=== PATIENT | female | born 1950 | race Caucasian/White ===

== ENCOUNTER 2018-10-06 02:00 | Inpatient (IN) | payer MEDICARE ==
[~2018-10-06] VITALS: Ht 157.5 cm; Wt 55.6 kg
--- NOTE | 2018-10-06 02:05 | NUR ---
BIB [facility] FROM [place] W/ CO HYPOTENSION/CHEST PRESSURE. PT TO [facility] INITALLY WITH CO RAPID HR. FOUND TO BE FEBRILE AND HYPOTENSIVE. PRELIMINARY DX OF PNU AND POSSIBLE UTI. 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 ARRIVES ON LEVOPHED, PWD/AWAKE/ALERT. NSR ON MONITOR. LEVOPHED STOPPED UPON ARRIVAL PER ERP ORDER. SO AT BEDSIDE.
[2018-10-06] MEDS ORDERED: OMNIPAQUE 350 MG/ML, 100ML BOTTLE ONE (02:15)
--- NOTE | 2018-10-06 02:21 | NUR ---
PT HYPOTENSIVE, SBP 80'S. ERP AWARE.
--- NOTE | 2018-10-06 02:29 | NUR ---
LEVOPHED INITIATED THROUGH PERIPHERAL IV PER ERP. PT SITTING UP IN [place] SPEAKING WITH RN AND SO WO DIFFICULTY. PT DENIES DIZZINESS/WEAKNESS/NAUSEA W/ HYPOTENSION. CENTRAL LINE CART SET UP. CONSENT SIGNED FOR CENTRAL LINE PLACEMENT.
[2018-10-06] MEDS ORDERED: SODIUM CHLORIDE FLUSH 10ML SYR IVF ONE (02:30)
[2018-10-06] MEDS ORDERED: NOREPINEPHRINE 4 MG in SODIUM CHLORIDE 0.9% 246 ML IV PRN ×3 (02:30→04:37)
[2018-10-06] MEDS ORDERED: OLAN5TAB9 PO (02:41)
[2018-10-06] MEDS ORDERED: ATOR-2 PO (02:41)
[2018-10-06] MEDS ORDERED: MULT-752 PO (02:41)
[2018-10-06] MEDS ORDERED: GABA300C10 PO (02:41)
[2018-10-06] MEDS ORDERED: MAGN400T26 PO (02:41)
[2018-10-06] MEDS ORDERED: DIGO125T PO (02:41)
[2018-10-06] MEDS ORDERED: METO200T47 PO (02:41)
[2018-10-06 02:50] LABS: BASOPHILS # (AUTO) 0.02 x10^3/uL (0-0.1); BASOPHILS % (AUTO) 0 % (0-1); EOSINOPHILS # (AUTO) 0.18 x10^3/uL (0-0.4); EOSINOPHILS % (AUTO) 1 % (1-7); LYMPHOCYTES % (AUTO) 14 % (22-44); MD NO; MEAN CORPUSCULAR HEMOGLOBIN 33.1 pg (27.0-34.8); MEAN CORPUSCULAR HGB CONC 33.5 g/dL (32.4-35.8); MEAN CORPUSCULAR VOLUME 98.9 fL (80-100); MEAN PLATELET VOLUME 10.3 fL (7.4-10.4); MONOCYTES % (AUTO) 7 % (2-9); NEUTROPHILS # (AUTO) 10.29 x10^3/uL (1.8-6.8); NEUTROPHILS % (AUTO) 77 % (42-75); PLATELET COUNT 225 x10^3/uL (130-400); RED BLOOD COUNT 3.18 x10^6/uL (3.82-5.3)
--- NOTE | 2018-10-06 02:56 | NUR ---
LEVO TITRATED TO DESIRED EFFECT. PT TO CT AT THIS TIME W/ RN. ON ZOLL THROUGHOUT. REPORT TO COLBY CHANG
[2018-10-06 03:01] LABS: ALANINE AMINOTRANSFERASE 63 U/L (12-78); ANION GAP 8 mmol/L (5-15); CALCIUM 7.7 mg/dL (8.5-10.1); CHLORIDE 110 mmol/L (98-107); CREATININE 0.62 mg/dL (0.55-1.02)
[2018-10-06 03:06] LABS: ALKALINE PHOSPHATASE 338 U/L (45-117); BILIRUBIN,TOTAL 0.5 mg/dL (0.2-1.0); TOTAL PROTEIN 5.7 g/dL (6.4-8.2); TROPONIN I 0.044 ng/mL (0.000-0.045)
--- NOTE | 2018-10-06 03:14 | NUR ---
PT BACK FROM CT. REPORT RECEIVED AND CARE ASSUMED. PT NSR ON MONITOR. BP 132/69 ON 2MCG/MIN OF LEVOPHED. LEVO DECREASED TO 1MCG/MIN. PT A&OX4. AWAITING ERP FOR CENTRAL LINE PLACEMENT.
--- NOTE | 2018-10-06 03:41 | NUR ---
PT ASSISTED WITH BEDPAN. UA COLLECTED AND SENT PER ERP REQUEST. ERP IN TO DISCUSS POC. CENTRAL LINE TO BE PLACED. REPORT TO JENNY BOWMAN.
[2018-10-06] MEDS ORDERED: LIDOCAINE-MPF 1%, 5ML ONE (03:49)
[2018-10-06 04:08] LABS: CULTURE INDICATED? YES; MICROSCOPIC INDICATED
[2018-10-06] MEDS ORDERED: MORPHINE SULFATE 4 MG/ML, 1ML ONE ×2 (04:28→05:02)
[2018-10-06] MEDS ORDERED: ONDANSETRON 2MG/ML, 2ML ONE (04:28)
[2018-10-06] MEDS ORDERED: CEFTRIAXONE PMX 1GM/50ML 50 ML IVPB ONE (04:30)
[2018-10-06] MEDS ORDERED: AZITHROMYCIN 500 MG in SODIUM CHLORIDE 0.9% 250 ML IV ONE (04:30)
[2018-10-06] MEDS: MORPHINE SULFATE 4 MG/ML, 1ML IVPush PRN ×2 (04:41→05:08)
[2018-10-06] MEDS ORDERED: CEFTRIAXONE PMX 1GM/50ML 50 ML ONE (04:46)
[2018-10-06] MEDS ORDERED: LEVOFLOXACIN/PMX 750MG/150ML 150 ML IV SCH (05:00)
[2018-10-06] MEDS ORDERED: ONDANSETRON 2MG/ML, 2ML IVPB PRN (05:00)
[2018-10-06] MEDS ORDERED: SODIUM CHLORIDE 0.9% 1,000ML IVBOLUS ONE (05:00)
[2018-10-06] MEDS ORDERED: PHARMACY MAY ADJ FOR RENAL FX MC PRN (05:00)
[2018-10-06] MEDS ORDERED: ALBUTEROL/IPRATROPIUM 2.5MG/0.5MG, 3 ML NPPB PRN (05:00)
[2018-10-06] MEDS ORDERED: SODIUM CHLORIDE 0.9%, 500ML IVBOLUS PRN ×2 (05:00)
[2018-10-06 05:18] LABS: FREE T4 (FREE THYROXINE) 0.92 ng/dL (0.76-1.46); THYROID STIMULATING HORMONE 6.26 mIU/L (0.358-3.740)
[2018-10-06] MEDS ORDERED: LEVOFLOXACIN/PMX 750MG/150ML 150 ML ONE (05:34)
[2018-10-06 05:57] VITALS: BP 135/72
[2018-10-06] MEDS: ASPIRIN 81 MG TABLET EC PO SCH (06:00)
[2018-10-06] MEDS: LEVOTHYROXINE 137 MCG TABLET PO SCH (06:18)
[2018-10-06] MEDS: DIGOXIN 0.125 MG TABLET PO SCH (09:00)
[2018-10-06] MEDS: OLANZAPINE 5 MG TABLET PO SCH (09:01)
[2018-10-06 10:48] LABS: TROPONIN I 0.085 ng/mL (0.000-0.045)
[2018-10-06] MEDS: OXYcodone IR 5MG TABLET PO PRN ×2 (13:46→20:14)
[2018-10-06] MEDS: PIPERACILLIN/TAZO/PMX 3.375GM 50 ML IV SCH ×2 (14:14→20:14)
[2018-10-06 14:44] VITALS: BP 118/67
[2018-10-06 15:04] LABS: TROPONIN I 0.073 ng/mL (0.000-0.045)
[2018-10-06] MEDS: LINEZOLID PMX 600MG/300ML 300 ML IV SCH (15:48)
[2018-10-06 18:54] VITALS: BP 89/58
[2018-10-06 19:09] LABS: TROPONIN I 0.065 ng/mL (0.000-0.045)
[2018-10-06] MEDS: GABAPENTIN 100 MG CAPSULE PO SCH (20:14)
[2018-10-06 21:15] VITALS: BP 80/47
[2018-10-06] MEDS ORDERED: SODIUM CHLORIDE 0.9%, 500ML IVBOLUS ONE ×2 (21:45→23:00)
[2018-10-06 22:54] VITALS: BP 71/42
[2018-10-06] MEDS ORDERED: ALBUMIN HUMAN 5% 500 ML IV ONE (23:00)
[2018-10-06 23:20] VITALS: BP 84/49
[2018-10-07] VITALS (8 sets, daily range): BP systolic 89–113; BP diastolic 49–69
[2018-10-07] MEDS: LINEZOLID PMX 600MG/300ML 300 ML IV SCH ×2 (01:13→13:19)
[2018-10-07 01:33] LABS: BASOPHILS # (AUTO) 0.02 x10^3/uL (0-0.1); BASOPHILS % (AUTO) 0 % (0-1); EOSINOPHILS # (AUTO) 0.11 x10^3/uL (0-0.4); EOSINOPHILS % (AUTO) 1 % (1-7); LYMPHOCYTES # (AUTO) 1.27 x10^3/uL (1-3.4); LYMPHOCYTES % (AUTO) 12 % (22-44); MD NO; MEAN CORPUSCULAR HEMOGLOBIN 32.1 pg (27.0-34.8); MEAN CORPUSCULAR VOLUME 97.2 fL (80-100); MEAN PLATELET VOLUME 9.9 fL (7.4-10.4); MONOCYTES # (AUTO) 0.59 x10^3/uL (0.2-0.8); MONOCYTES % (AUTO) 6 % (2-9); NEUTROPHILS # (AUTO) 8.76 x10^3/uL (1.8-6.8); NEUTROPHILS % (AUTO) 82 % (42-75); PLATELET COUNT 210 x10^3/uL (130-400); RED BLOOD COUNT 2.97 x10^6/uL (3.82-5.3); RED CELL DISTRIBUTION WIDTH 17.5 % (9.6-15.2)
[2018-10-07 01:37] LABS: ALANINE AMINOTRANSFERASE 46 U/L (12-78); ANION GAP 9 mmol/L (5-15); CALCIUM 7.9 mg/dL (8.5-10.1); CHLORIDE 106 mmol/L (98-107); CREATININE 0.86 mg/dL (0.55-1.02)
[2018-10-07 01:39] LABS: ALKALINE PHOSPHATASE 258 U/L (45-117); BILIRUBIN,TOTAL 0.6 mg/dL (0.2-1.0); TOTAL PROTEIN 5.3 g/dL (6.4-8.2)
[2018-10-07] MEDS: OXYcodone IR 5MG TABLET PO PRN ×4 (02:08→21:41)
[2018-10-07 02:36] LABS: TROPONIN I 0.048 ng/mL (0.000-0.045)
[2018-10-07] MEDS ORDERED: MAGNESIUM SULFATE PMX 2GM/50ML 50 ML IV ONE ×2 (03:00→13:00)
[2018-10-07] MEDS: PIPERACILLIN/TAZO/PMX 3.375GM 50 ML IV SCH ×4 (03:41→21:41)
[2018-10-07] MEDS: LEVOTHYROXINE 137 MCG TABLET PO SCH (05:30)
[2018-10-07] MEDS: ASPIRIN 81 MG TABLET EC PO SCH (05:30)
[2018-10-07] MEDS: OLANZAPINE 5 MG TABLET PO SCH (08:56)
[2018-10-07] MEDS: DIGOXIN 0.125 MG TABLET PO SCH (08:57)
[2018-10-07] MEDS: HYDROCORTISONE 100 MG INJ. IVPush SCH ×2 (12:43→20:01)
[2018-10-07] MEDS: GABAPENTIN 100 MG CAPSULE PO SCH (21:41)
[2018-10-07] MEDS ORDERED: DIPHENHYDRAMINE 25 MG CAPSULE ONE (23:54)
[2018-10-08 00:02] VITALS: BP 113/64
[2018-10-08] MEDS: HYDROCORTISONE 100 MG INJ. IVPush SCH ×4 (01:00→17:55)
[2018-10-08] MEDS: LINEZOLID PMX 600MG/300ML 300 ML IV SCH ×2 (01:01→13:48)
[2018-10-08] MEDS: PIPERACILLIN/TAZO/PMX 3.375GM 50 ML IV SCH ×4 (03:36→20:55)
[2018-10-08] MEDS: OXYcodone IR 5MG TABLET PO PRN ×4 (03:36→22:36)
[2018-10-08 04:34] LABS: BASOPHILS # (AUTO) 0.06 x10^3/uL (0-0.1); BASOPHILS % (AUTO) 1 % (0-1); EOSINOPHILS % (AUTO) 0 % (1-7); LYMPHOCYTES # (AUTO) 0.74 x10^3/uL (1-3.4); LYMPHOCYTES % (AUTO) 6 % (22-44); MD NO; MEAN CORPUSCULAR HEMOGLOBIN 31.7 pg (27.0-34.8); MEAN CORPUSCULAR HGB CONC 32.3 g/dL (32.4-35.8); MEAN CORPUSCULAR VOLUME 98.1 fL (80-100); MEAN PLATELET VOLUME 9.5 fL (7.4-10.4); MONOCYTES # (AUTO) 0.15 x10^3/uL (0.2-0.8); MONOCYTES % (AUTO) 1 % (2-9); NEUTROPHILS # (AUTO) 10.87 x10^3/uL (1.8-6.8); NEUTROPHILS % (AUTO) 92 % (42-75); PLATELET COUNT 210 x10^3/uL (130-400); RED BLOOD COUNT 3.11 x10^6/uL (3.82-5.3); RED CELL DISTRIBUTION WIDTH 17.7 % (9.6-15.2)
[2018-10-08 04:44] LABS: ANION GAP 9 mmol/L (5-15); CALCIUM 8.5 mg/dL (8.5-10.1); CHLORIDE 106 mmol/L (98-107); CREATININE 0.75 mg/dL (0.55-1.02)
[2018-10-08] MEDS: LEVOTHYROXINE 137 MCG TABLET PO SCH (06:14)
[2018-10-08] MEDS: ASPIRIN 81 MG TABLET EC PO SCH (06:14)
[2018-10-08 08:00] VITALS: BP 93/56
[2018-10-08] MEDS: OLANZAPINE 5 MG TABLET PO SCH (08:59)
[2018-10-08] MEDS: DIGOXIN 0.125 MG TABLET PO SCH (08:59)
[2018-10-08 14:00] VITALS: BP 101/56
[2018-10-08] MEDS: GABAPENTIN 100 MG CAPSULE PO SCH (20:55)
[2018-10-08 22:30] VITALS: BP 136/70
[2018-10-08] MEDS ORDERED: TEMAZEPAM 15 MG CAPSULE ONE (23:41)
[2018-10-08] MEDS ORDERED: DIPHENHYDRAMINE 25 MG CAPSULE PO ONE ×2 (23:45)
[2018-10-08] MEDS: TEMAZEPAM 15 MG CAPSULE PO PRN (23:56)
[2018-10-09] MEDS: TEMAZEPAM 15 MG CAPSULE PO PRN ×2 (01:23→21:13)
[2018-10-09 01:24] VITALS: BP 138/81
[2018-10-09] MEDS: HYDROCORTISONE 100 MG INJ. IVPush SCH ×5 (03:43→23:29)
[2018-10-09] MEDS: PIPERACILLIN/TAZO/PMX 3.375GM 50 ML IV SCH ×4 (03:43→21:14)
[2018-10-09 05:19] LABS: HCT (SEDRATE) 29.9 % (34.6-47.8)
[2018-10-09 05:22] LABS: MEAN CORPUSCULAR HEMOGLOBIN 31.6 pg (27.0-34.8); MEAN CORPUSCULAR VOLUME 98.8 fL (80-100); MEAN PLATELET VOLUME 10.1 fL (7.4-10.4); PLATELET COUNT 274 x10^3/uL (130-400); RED BLOOD COUNT 3.11 x10^6/uL (3.82-5.3); RED CELL DISTRIBUTION WIDTH 17.9 % (9.6-15.2)
[2018-10-09 05:24] LABS: ANION GAP 10 mmol/L (5-15); CALCIUM 8.5 mg/dL (8.5-10.1); CHLORIDE 105 mmol/L (98-107)
[2018-10-09 05:38] LABS: CREATININE 0.96 mg/dL (0.55-1.02)
[2018-10-09 05:45] LABS: BASOPHILS # (AUTO) 0.02 x10^3/uL (0-0.1); BASOPHILS % (AUTO) 0 % (0-1); EOSINOPHILS % (AUTO) 0 % (1-7); LYMPHOCYTES # (AUTO) 0.99 x10^3/uL (1-3.4); LYMPHOCYTES % (AUTO) 5 % (22-44); MD SCAN; MONOCYTES # (AUTO) 0.28 x10^3/uL (0.2-0.8); MONOCYTES % (AUTO) 1 % (2-9); NEUTROPHILS # (AUTO) 20.78 x10^3/uL (1.8-6.8); NEUTROPHILS % (AUTO) 94 % (42-75)
[2018-10-09 07:05] VITALS: BP_SYST 149; BP_SYST 151; BP_DIAS 75; BP_DIAS 76
[2018-10-09 11:14] VITALS: BP 149/66
[2018-10-09] MEDS: DIGOXIN 0.125 MG TABLET PO SCH (11:15)
[2018-10-09] MEDS: ASPIRIN 81 MG TABLET EC PO SCH (11:15)
[2018-10-09] MEDS: LEVOTHYROXINE 137 MCG TABLET PO SCH (11:15)
[2018-10-09] MEDS: OLANZAPINE 5 MG TABLET PO SCH (11:16)
[2018-10-09] MEDS: LINEZOLID 600 MG TABLET PO SCH ×2 (11:16→21:13)
[2018-10-09] MEDS: OXYcodone IR 5MG TABLET PO PRN ×3 (11:16→23:29)
[2018-10-09 14:00] VITALS: BP 148/74
[2018-10-09 20:38] VITALS: BP 155/74
[2018-10-09] MEDS: GABAPENTIN 100 MG CAPSULE PO SCH (21:13)
[2018-10-10] VITALS (7 sets, daily range): BP systolic 156–186; BP diastolic 77–83
[2018-10-10] MEDS ORDERED: hydrALAzine 20 MG/ML, 1ML IV ONE (03:00)
[2018-10-10] MEDS: PIPERACILLIN/TAZO/PMX 3.375GM 50 ML IV SCH ×3 (03:12→15:31)
[2018-10-10] MEDS: HYDROCORTISONE 100 MG INJ. IVPush SCH ×2 (05:37→11:30)
[2018-10-10] MEDS: ASPIRIN 81 MG TABLET EC PO SCH (05:37)
[2018-10-10] MEDS: LEVOTHYROXINE 137 MCG TABLET PO SCH (05:38)
[2018-10-10] MEDS: OXYcodone IR 5MG TABLET PO PRN ×4 (05:38→23:23)
[2018-10-10 06:07] LABS: ANION GAP 11 mmol/L (5-15); CALCIUM 8.4 mg/dL (8.5-10.1); CHLORIDE 104 mmol/L (98-107); CREATININE 0.93 mg/dL (0.55-1.02)
[2018-10-10 06:42] LABS: MEAN CORPUSCULAR HEMOGLOBIN 35.4 pg (27.0-34.8); MEAN CORPUSCULAR HGB CONC 34.2 g/dL (32.4-35.8); MEAN CORPUSCULAR VOLUME 103.5 fL (80-100); MEAN PLATELET VOLUME 10.1 fL (7.4-10.4); PLATELET COUNT 323 x10^3/uL (130-400); RED BLOOD COUNT 2.84 x10^6/uL (3.82-5.3); RED CELL DISTRIBUTION WIDTH 17.1 % (9.6-15.2)
[2018-10-10 07:05] LABS: BASOPHILS % (AUTO) 0 % (0-1); EOSINOPHILS # (AUTO) 0.21 x10^3/uL (0-0.4); EOSINOPHILS % (AUTO) 1 % (1-7); LYMPHOCYTES # (AUTO) 1.05 x10^3/uL (1-3.4); LYMPHOCYTES % (AUTO) 6 % (22-44); MD MORPH REVIEW ONLY; MONOCYTES # (AUTO) 0.11 x10^3/uL (0.2-0.8); MONOCYTES % (AUTO) 1 % (2-9); NEUTROPHILS # (AUTO) 17.18 x10^3/uL (1.8-6.8); NEUTROPHILS % (AUTO) 93 % (42-75)
[2018-10-10 07:06] LABS: <PLATELET ESTIMATE> ADEQUATE; <PLT MORPHOLOGY> NORMAL PLT MORPH; HYPERSEG PMNs 1+
[2018-10-10 07:07] LABS: <RBC MORPHOLOGY> NORMAL
[2018-10-10] MEDS: OLANZAPINE 5 MG TABLET PO SCH (08:16)
[2018-10-10] MEDS: LINEZOLID 600 MG TABLET PO SCH (08:16)
[2018-10-10] MEDS: DIGOXIN 0.125 MG TABLET PO SCH (08:17)
[2018-10-10] MEDS: AMOXICILLIN/CLAV 875-125MG TABLET PO SCH (17:25)
[2018-10-10] MEDS: GABAPENTIN 100 MG CAPSULE PO SCH (20:46)
[2018-10-11] MEDS: TEMAZEPAM 15 MG CAPSULE PO PRN (00:06)
[2018-10-11 01:01] VITALS: BP 156/73
[2018-10-11 04:55] LABS: ANION GAP 9 mmol/L (5-15); BASOPHILS # (AUTO) 0.01 x10^3/uL (0-0.1); BASOPHILS % (AUTO) 0 % (0-1); CALCIUM 8.4 mg/dL (8.5-10.1); CHLORIDE 101 mmol/L (98-107); CREATININE 0.88 mg/dL (0.55-1.02); EOSINOPHILS # (AUTO) 0.09 x10^3/uL (0-0.4); EOSINOPHILS % (AUTO) 1 % (1-7); LYMPHOCYTES # (AUTO) 2.25 x10^3/uL (1-3.4); LYMPHOCYTES % (AUTO) 19 % (22-44); MD NO; MEAN CORPUSCULAR HEMOGLOBIN 34.8 pg (27.0-34.8); MEAN CORPUSCULAR HGB CONC 34.2 g/dL (32.4-35.8); MEAN CORPUSCULAR VOLUME 101.8 fL (80-100); MEAN PLATELET VOLUME 9.5 fL (7.4-10.4); MONOCYTES # (AUTO) 0.43 x10^3/uL (0.2-0.8); MONOCYTES % (AUTO) 4 % (2-9); NEUTROPHILS # (AUTO) 9.43 x10^3/uL (1.8-6.8); NEUTROPHILS % (AUTO) 77 % (42-75); PLATELET COUNT 388 x10^3/uL (130-400); RED BLOOD COUNT 3.32 x10^6/uL (3.82-5.3); RED CELL DISTRIBUTION WIDTH 17.4 % (9.6-15.2)
[2018-10-11] MEDS: AMOXICILLIN/CLAV 875-125MG TABLET PO SCH ×2 (05:20→16:36)
[2018-10-11] MEDS: ASPIRIN 81 MG TABLET EC PO SCH (05:20)
[2018-10-11] MEDS: LEVOTHYROXINE 137 MCG TABLET PO SCH (05:20)
[2018-10-11] MEDS: OXYcodone IR 5MG TABLET PO PRN ×2 (05:20→12:04)
[2018-10-11 07:11] VITALS: BP 164/81
[2018-10-11] MEDS ORDERED: POTASSIUM CHLORIDE 20 MEQ TAB.ER.PRT PO ONE ×2 (08:30→12:30)
[2018-10-11] MEDS: HYDROCORTISONE 100 MG INJ. IVPush SCH ×2 (08:55→09:20)
[2018-10-11] MEDS: DIGOXIN 0.125 MG TABLET PO SCH (08:55)
[2018-10-11] MEDS: OLANZAPINE 5 MG TABLET PO SCH (09:20)
[2018-10-11] MEDS ORDERED: hydrALAzine 20 MG/ML, 1ML IV ONE (10:00)
[2018-10-11] MEDS ORDERED: BUTALBIT/ACETAMIN/CAFF/CODEINE CAPSULE PO ONE (10:00)
[2018-10-11 10:46] VITALS: BP 107/65
[2018-10-11] MEDS ORDERED: AMOX1TAB12 PO (11:56)
[2018-10-11] MEDS ORDERED: LEVO137T2 PO (11:56)
[2018-10-11] MEDS ORDERED: METH4TAB6 PO (11:56)
[2018-10-11] MEDS ORDERED: ASPI81TA45 PO (11:56)
[2018-10-11 12:03] VITALS: BP 107/64
[2018-10-13] MEDS ORDERED: HYDROCORTISONE 100 MG INJ. IVPush SCH (09:00)
== END 2018-10-11 19:04 | disposition home or self-care (01) | DRG 871 ==
LOC: ED 04:10 → EDIP 04:29 → CCU 05:48 → 5SO 14:43
PROVIDERS: ADMIT Internal Medicine; ATTEND Internal Medicine
PROC: 02HV33Z Insertion of Infusion Device into Superior Vena Cava, Percutaneous Approach (ICD-10-PCS; principal; 2018-10-06)
DX: A41.9 Sepsis, unspecified organism (principal); R65.21 Severe sepsis with septic shock; I50.21 Acute systolic (congestive) heart failure; J15.9 Unspecified bacterial pneumonia; I21.9 Acute myocardial infarction, unspecified; E27.40 Unspecified adrenocortical insufficiency; K50.90 Crohn's disease, unspecified, without complications; F11.20 Opioid dependence, uncomplicated; J44.0 Chronic obstructive pulmonary disease with (acute) lower respiratory infection; N39.0 Urinary tract infection, site not specified; F32.9 Major depressive disorder, single episode, unspecified; G25.81 Restless legs syndrome; E03.9 Hypothyroidism, unspecified; G89.29 Other chronic pain; F41.9 Anxiety disorder, unspecified; D63.8 Anemia in other chronic diseases classified elsewhere; E78.5 Hyperlipidemia, unspecified; E83.51 Hypocalcemia; F17.200 Nicotine dependence, unspecified, uncomplicated; I11.0 Hypertensive heart disease with heart failure; I25.10 Atherosclerotic heart disease of native coronary artery without angina pectoris; I48.2 Chronic atrial fibrillation; K22.70 Barrett's esophagus without dysplasia; N28.9 Disorder of kidney and ureter, unspecified; Z87.01 Personal history of pneumonia (recurrent); Z79.82 Long term (current) use of aspirin; Z79.899 Other long term (current) drug therapy; Z90.49 Acquired absence of other specified parts of digestive tract; Z90.711 Acquired absence of uterus with remaining cervical stump
CPT/HCPCS: 36415; 36556; 71045; 71275; 80048; 80053; 81001; 82533; 83605; 83735; 83880; 84100; 84132; 84145; 84439; 84443; 84484; 85025; 85651; 86140; 87040; 87081; 87086; 93005; 93306; 96365; 96366; 96375; G0378; J0696; J1956; J2020; J2543; J7620; P9045; Q9967; J0360; J1720; J2270; J3475; J7040; J7050; Q0163